=== PATIENT | female | born 1990 | race Caucasian/White ===

== ENCOUNTER 2019-06-03 16:25 | Inpatient (IN) | payer BC ==
[2019-06-03] MEDS ORDERED: CITRIC ACID/SODIUM CITRATE SOL PO ONE (18:12)
[2019-06-03] MEDS: LACTATED RINGERS 1,000 ML IV SCH ×3 (18:40→21:30)
[2019-06-03 18:47] LABS: BASOPHILS % (AUTO) 1 % (0-3); EOSINOPHILS % (AUTO) 0 % (0-9); HEMATOCRIT 39 % (35-47); HEMOGLOBIN 12.8 gm/dl (12.0-15.5); LYMPHOCYTES % (AUTO) 39.8 % (10-50); MEAN CORPUSCULAR HEMOGLOBIN 32.5 pg (27.0-32.0); MEAN CORPUSCULAR HGB CONC 32.7 gm/dl (32.0-36.0); NEUTROPHILS % (AUTO) 54.5 % (37-80)
[2019-06-03 18:48] LABS: MEAN CORPUSCULAR VOLUME 99 fL (81-99)
[2019-06-03] MEDS ORDERED: BUPIVACAINE/EPI 0.25% 50 ML SOL ONE (19:03)
[2019-06-03 19:16] LABS: ALBUMIN 2.7 gm/dl (3.4-5.0); BILIRUBIN,TOTAL 0.2 mg/dl (0.2-1.0); CALCIUM 8.5 mg/dl (8.5-10.1); CARBON DIOXIDE 24.7 mEq/L (21-32); CREATININE 0.8 mg/dl (0.60-1.00); TOTAL PROTEIN 6.4 gm/dl (6.4-8.2)
[2019-06-03] MEDS ORDERED: CEFAZOLIN SODIUM 1 GM PDS IV ONE (19:25)
[2019-06-03] MEDS ORDERED: AZITHROMYCIN 500 MG PDS IV ONE (19:30)
[2019-06-03 19:41] LABS: ABO B; ANTIBODY SCREEN Negative; RH TYPE Positive
[2019-06-03] MEDS ORDERED: LACTATED RINGERS 1,000 ML with OXYTOCIN 10000 MU/ML 20 MU IV ONE (19:42)
[2019-06-03] MEDS ORDERED: ONDANSETRON HCL 4 MG/2 ML SOL IV PRN (21:38)
[2019-06-03] MEDS ORDERED: TEMAZEPAM 15MG 15 MG CAP PO PRN (21:38)
[2019-06-03] MEDS ORDERED: BISACODYL 10 MG SUP PR PRN (21:38)
[2019-06-03] MEDS ORDERED: METHYLERGONOVINE MALEATE 0.2 MG TAB PO PRN (21:38)
[2019-06-03] MEDS ORDERED: WITCH HAZEL 1 EA PAD TOP PRN (21:38)
[2019-06-03] MEDS ORDERED: DIPHENHYDRAMINE 25 MG CAP PO PRN (21:38)
[2019-06-03] MEDS ORDERED: FLEET ENEMA PR PRN (21:38)
[2019-06-03] MEDS ORDERED: IBUPROFEN 600 MG TAB PO PRN (21:38)
[2019-06-03] MEDS ORDERED: BENZOCAINE/MENTHOL 1 SPR TOP PRN (21:38)
[2019-06-04] MEDS: KETOROLAC TROMETHAMINE 30 MG/ML SOL IV PRN ×2 (01:49→07:43)
[2019-06-04] MEDS: APAP/HYDROCODONE 1 EACH TABLET PO PRN ×5 (05:32→22:24)
[2019-06-04] MEDS: LACTATED RINGERS 1,000 ML IV SCH (06:15)
[2019-06-04 07:46] LABS: APPEARANCE,URINE Clear; BILIRUBIN,URINE NEGATIVE (NEGATIVE); COLOR,URINE Light yellow; GLUCOSE, URINE (UA) NEGATIVE (NEGATIVE); KETONES,URINE NEGATIVE (NEGATIVE); LEUKOCYTE ESTERASE ,URINE NEGATIVE (NEGATIVE); NITRATE,URINE NEGATIVE (NEGATIVE); OCCULT BLOOD,URINE NEGATIVE (NEG-TRACE); UROBILINOGEN,URINE 0.2 (0.2-1.0 EU)
[2019-06-04 07:56] LABS: BACTERIA NEGATIVE (< 1+); CRYSTALS NEGATIVE (0-3 AVE/HPF); EPITHELIAL CELLS 0-3 (SQUAMOUS); RBC,URINE NEG (0-3AV/HPF); WBC,URINE NEG (0-5AV/HPF)
[2019-06-04] MEDS: DOCUSATE SODIUM 100 MG SGL PO SCH ×2 (08:47→21:32)
[2019-06-05] MEDS: APAP/HYDROCODONE 1 EACH TABLET PO PRN ×5 (03:02→22:49)
[2019-06-05] MEDS: DOCUSATE SODIUM 100 MG SGL PO SCH ×2 (09:53→21:01)
[2019-06-06 04:13] VITALS: BP 132/86; PULSE 78; RESP 18; TEMP 98.1; O2SAT 97
[2019-06-06] MEDS: APAP/HYDROCODONE 1 EACH TABLET PO PRN ×2 (04:14→09:28)
[2019-06-06] MEDS: DOCUSATE SODIUM 100 MG SGL PO SCH (09:27)
== END 2019-06-06 11:40 | disposition home or self-care (01) | DRG 540 ==
LOC: OBOP 16:25 → OB 18:30 → UNDOADMIN 18:30 → UNDODISIN 06-06 11:40
PROVIDERS: ADMIT Family Medicine; ATTEND Family Medicine
PROC: 10D00Z1 Extraction of Products of Conception, Low, Open Approach (ICD-10-PCS; principal; 2019-06-03 19:00)
DX: O82 Encounter for cesarean delivery without indication (principal); O64.1XX0 Obstructed labor due to breech presentation, not applicable or unspecified; Z3A.37 37 weeks gestation of pregnancy; Z37.0 Single live birth
CPT/HCPCS: 36415; 59025; 80053; 81001; 85018; 85025; 86850; 86900; 86901; 99070; J0456; J0690; J1885; J2405; J2590; J3010; A9270-GY